=== PATIENT | male | born 2000 | race Asian ===

== ENCOUNTER 2021-05-08 19:27 | Emergency (ER) | payer OTHER ==
[~2021-05-08] VITALS: Ht 190.5 cm; Wt 136.2 kg
--- NOTE | 2021-05-08 19:56 | PHYS DOC ---
General Adult EDM: Chief Complaint: FOOT INJURY PAIN HPI: HPI: Patient is a 20-year-old male who presents to the ER for right foot and left great toe pain. Patient has had left great toe pain for 2 months. He reports having an ingrown toenail. He rates his pain 7 out of 10, it is worse with bearing weight and ambulation. No treatment prior to arrival. Patient reports that his right foot pain started 1 week ago after running. He reports pain plantar aspect of his foot. He rates it 5 out of 10, does not radiate, no treatment prior to arrival, worse with bearing weight and ambulating. Patient denies fevers, inability to bear weight or ambulate, decreased sensation decreased range of motion. (BOLIVAR MEJIA APRN) Review of Systems: Review of Systems: 14 body systems of the review of systems have been reviewed. See HPI for pertinent positive and negative responses, otherwise all other systems are negative, nonpertinent or noncontributory (BOLIVAR MEJIA APRN) Allergies: Allergies: Allergies Coded Allergies Type Severity Reaction Last Updated Verified No Known Drug Allergies 05/08/21 No (BOLIVAR MEJIA APRN) Physical Exam: PE: Constitutional: Well developed, well nourished, no acute distress, non-toxic appearance. [] HENT: Normocephalic, atraumatic Eyes: PERRL, conjunctiva normal, no discharge. [] Neck: Normal range of motion, no stridor Cardiovascular: Normal peripheral perfusion Lungs & Thorax: Normal work of breathing, no tachypnea Skin: Warm, dry, no rash, swelling, redness, warmth surrounding left great toenail, purulent drainage noted. [] Back: No tenderness, normal range of motion [] Extremities: No tenderness, no cyanosis, no clubbing, ROM intact, no edema. Right foot: No obvious deformity, no swelling, no wounds range of motion intact of ankle and toes, neuro intact, pain with palpation plantar aspect of foot sin g plantar fascia. [] Neurologic: Alert and oriented X 3, normal motor function, normal sensory function, no focal deficits noted. [] Psychologic: Affect normal, judgement normal, mood normal. [] (BOLIVAR MEJIA APRN) EKG: EKG: [] (BOLIVAR MEJIA APRN) Radiology/Procedures: Radiology/Procedures: X-ray read by Dr. Madden is negative for any acute findings. Awaiting radiologist read at this time.2155 (BOLIVAR MEJIA APRN) Heart Score: C/O Chest Pain: No Risk Factors: Risk Factors: DM, Current or recent (<one month) smoker, HTN, HLP, family history of CAD, obesity. Risk Scores: Score 0 - 3: 2.5% MACE over next 6 weeks - Discharge Home Score 4 - 6: 20.3% MACE over next 6 weeks - Admit for Clinical Observation Score 7 - 10: 72.7% MACE over next 6 weeks - Early Invasive Strategies (BOLIVAR MEJIA APRN) Course & Med Decision Making: Course & Med Decision Making Pertinent Labs and Imaging studies reviewed. (See chart for details) Patient is a 20-year-old male being seen for right foot and left great toe pain. An x-ray was performed of his right foot that was negative for any acute findings. Patient was tender with palpation along the plantar fascia of his right foot. It is likely that patient has inflammation of his plantar fascia. Patient advised to take ibuprofen/Tylenol for his pain. Patient has an ingrown toenail with infection to his left great toe. There was a collection of fluid along the left great toe. I discussed with patient draining the fluid without a digital block versus digital block and he chose to have the abscess drained without a digital block. The toe was cleansed with chlorhexidine and a small puncture was made. Serous sanguinous fluid was drained. Was cleansed with chlorhexidine again and a dressing was applied. Patient tolerated procedure. Patient neurologically intact pre and post procedure. Patient was treated in the ER with an antibiotic and pain medication. Patient's foot placed in a postop shoe. I discussed with patient all findings and diagnostic testing as well as the need to follow-up with PCP for further evaluation and treatment or return to the ER if any new or worsening symptoms. Strict return precautions were also discussed at length. Patient voiced understanding and agreement with the plan. Patient is hemodynamically stable at the time of disposition. (BOLIVAR MEJIA APRN) Course & Med Decision Making Did not see or evaluate patient. Agree with APPRAISAL SPECIALIST's work-up and disposition per note. (ROBI MADDEN MD) Dragon Disclaimer: Dragon Disclaimer: This electronic medical record was generated, in whole or in part, using a voice recognition dictation system. (BOLIVAR MEJIA APRN) Departure Departure: Impression: Primary Impression: Cellulitis Qualified Codes: L03.818 - Cellulitis of other sites Additional Impression: Plantar fascia syndrome Disposition: HOME / SELF CARE / HOMELESS Condition: GOOD Referrals: PCP,UNKNOWN (PCP) Patient Instructions: Cellulitis, Plantar Fasciitis Additional Instructions: You were seen in the ER today for right foot pain and left great toe pain. An x-ray was performed of your right foot and it was negative for fracture. It is likely that you have a musculoskeletal injury this will likely improve over time .You have pain in your foot where your plantar fascia tendon is. This is an overuse injury. Your symptoms may be improved by something called the rice protocol. This is rest, ice, compression, elevation. Please follow-up when doing intense exercises that may make the pain worse. Sometimes gentle stretching can provide relief, but be careful to injury. It is important to perform gentle range of motion exercises to prevent stiff joints and chronic pain. Use ice packs over the affected areas to help decrease your pain. For the first 24 hours you can apply ice 20 minutes on 20 minutes off for 4 times per day. Wear the postop shoe for support. You may also elevate the affected area to help with the swelling. You had an infection noted to the skin around your left great toe. The abscess was drained. Please keep this area clean and dry. You can apply Polysporin to the area and keep a dressing on the toe. An antibiotic was sent in for you to your pharmacy of choice. Please make sure that you start and finish the antibiotic completely. You were given your first dose in the ER today. You can take Tylenol/ibuprofen for pain at home. Monitor for worsening of your infection such as increased redness, warmth, swelling, drainage. Scripts Sulfamethoxazole/Trimethoprim (BACTRIM DS TABLET) 1 Each Tablet 1 TAB PO BID for toe infection for 10 Days, #20 TAB 0 Refills Prov: BOLIVAR MEJIA APRN 05/08/21 BOLIVAR MEJIA APRN May 08, 2021 19:56 ROBI MADDEN MD May 09, 2021 00:44
[2021-05-08] MEDS ORDERED: SMZ/TMP 800/160MG TABLET. PO ONE (20:00)
[2021-05-08] MEDS ORDERED: HYDROcodone/APAP 5/325MG 1 TAB TABLET PO ONE (20:00)
[2021-05-08] MEDS ORDERED: SULF1TAB24 PO (20:23)
[2021-05-08 22:00] VITALS: BP 130/72
--- NOTE | 2021-05-08 22:09 | RAD ---
Study: XR FOOT_RIGHT 3 VIEWS Indication: Foot pain for the past week. Comparison: None. Findings: The soft tissues appear somewhat prominent lateral to the fifth metatarsal. No fracture is identified or radiographic manifestations of stress injury. Alignment is within normal limits taking into consi deration the absence of weightbearing. Maintained joint spaces. Impression: No acute fracture or radiographic evidence for stress injury. The soft tissues appear mildly prominen t lateral to the fifth metatarsal. If there is concern for a stress fracture eventual MRI would be th e most sensitive modality. Electronically signed by: MELANIE LOYA MD (05/08/2021 10:07 PM) [facility]
== END 2021-05-08 22:14 | disposition home or self-care (01) ==
LOC: ER 19:27
DX: L03.032 Cellulitis of left toe (principal); M72.2 Plantar fascial fibromatosis
CPT/HCPCS: 10060; 73630; 99283

== ENCOUNTER 2022-01-29 09:26 | Emergency (ER) | payer OTHER ==
[~2022-01-29] VITALS: Ht 190.5 cm; Wt 147.2 kg
[~2022-01-29 09:26] MED LIST: SULF1TAB24 PO
[2022-01-29] MEDS ORDERED: HYDR-2155 PO (10:06)
[2022-01-29] MEDS ORDERED: CEPH500C PO (10:06)
[2022-01-29] MEDS ORDERED: SULF1TAB24 PO (10:08)
--- NOTE | 2022-01-29 10:08 | PHYS DOC ---
Past History Past Surgical History: No Surgical History Alcohol Use: None General Adult EDM: Chief Complaint: TOE PROBLEM HPI: HPI: Patient is a 21-year-old male who presents to the emergency department for an ingrown toenail to his right great toe. Patient reports that he believes ingrown toe is infected. He states that he has had the ingrown toenail for months. He states that he is supposed to do physical test for the tomorrow and would like us to give him a note so that he does not have to do that physical test tomorrow due to his toe. Patient denies any fevers, nausea, vomiting. Review of Systems: Review of Systems: Constitutional: See HPI GI: See HPI Musculoskeletal: See HPI Integument: See HPI Allergies: Allergies: Allergies Coded Allergies Type Severity Reaction Last Updated Verified No Known Drug Allergies 01/29/22 No Physical Exam: PE: Constitutional: Well developed, well nourished, no acute distress, non-toxic appearance. [] HENT: Normocephalic, atraumatic, bilateral external ears normal, oropharynx moist, no oral exudates, nose normal. [] Eyes: PERRL, EOMI, conjunctiva normal, no discharge. [] Neck: Normal range of motion, no stridor Cardiovascular: Normal peripheral perfusion Lungs & Thorax: Normal work of breathing Abdomen: Soft and obese Skin: Warm, dry, no erythema, no rash. [] Back: No tenderness, normal range of motion Extremities: No tenderness, no cyanosis, no clubbing, ROM intact, no edema. [] Right great toe: Redness, warmth and swelling noted surrounding nailbed with small amount of purulent drainage. There appears to be no area of fluctuance to drain. Range of motion intact. Neuro intact. Neurologic: Alert and oriented X 3, normal motor function, normal sensory function, no focal deficits noted. [] Psychologic: Affect normal, judgement normal, mood normal. [] Current Patient Data: Vital Signs: Vital Signs Date Time Temp Pulse Resp B/P (MAP) Pulse Ox O2 Delivery O2 Flow Rate FiO2 01/29/22 09:30 97.9 86 18 153/82 (105) 95 Room Air EKG: EKG: [] Radiology/Procedures: Radiology/Procedures: [] Heart Score: C/O Chest Pain: N/A Risk Factors: Risk Factors: DM, Current or recent (<one month) smoker, HTN, HLP, family history of CAD, obesity. Risk Scores: Score 0 - 3: 2.5% MACE over next 6 weeks - Discharge Home Score 4 - 6: 20.3% MACE over next 6 weeks - Admit for Clinical Observation Score 7 - 10: 72.7% MACE over next 6 weeks - Early Invasive Strategies Course & Med Decision Making: Course & Med Decision Making Pertinent Labs and Imaging studies reviewed. (See chart for details) [] Patient resents to the emergency department planing her entire note is made great toe. It appears that patient's right great toe has a skin infection. There is no fluctuant area to drain. Patient will be placed on an antibiotic. Patient states that he has an appointment with the director of clinical applications this week. Patient advised to follow-up with the director of clinical applications as soon as possible. I discussed with patient all findings and diagnostic testing as well as the need to follow-up with PCP for further evaluation and treatment or return to the ER if any new or worsening symptoms. Strict return precautions were also discussed at length. Patient voiced understanding and agreement with the plan. Patient is hemodynamically stable at the time of disposition. Dragon Disclaimer: Next Performance Disclaimer: This electronic medical record was generated, in whole or in part, using a voice recognition dictation system. Departure Departure: Impression: Primary Impression: Cellulitis Qualified Codes: L03.031 - Cellulitis of right toe Disposition: HOME / SELF CARE / HOMELESS Condition: GOOD Referrals: PCP,NO (PCP) Patient Instructions: Cellulitis Additional Instructions: You were seen in the emergency department today for an infected ingrown toenail. You are being placed on antibiotic. Please start and finish the antibiotic completely. You are being discharged home with pain medication. This medication is hydrocodone and Tylenol and a combination tablet. This medication may cause sedation so do not take need to be alert, driving a vehicle or with alcohol. You can take ibuprofen or naproxen for mild pain. Follow-up with your primary care provider on Sunday regarding your ER visit. Please follow-up with your director of clinical applications as previously scheduled. Return to the emergency department if you develop worsening of your infection, high fevers refractory to treatment, intractable nausea or vomiting, inability to bear weight or walk. Scripts Sulfamethoxazole/Trimethoprim (BACTRIM DS TABLET) 1 Each Tablet 1 TAB PO BID for infection for 7 Days, #14 TAB 0 Refills Prov: BOLIVAR MEJIA APRN 01/29/22 Hydrocodone Bit/Acetaminophen (HYDROCODONE-APAP 5-325 ) 1 Each Tablet 1 TAB PO PRN Q6HRS PRN for PAIN for 2 Days, #8 TAB 0 Refills Prov: BOLIVAR MEJIA APRN 01/29/22 BOLIVAR MEJIA APRN Jan 29, 2022 10:08
[2022-01-29 10:24] VITALS: BP 156/77
== END 2022-01-29 10:20 | disposition home or self-care (01) ==
LOC: ER 09:26
DX: L03.031 Cellulitis of right toe (principal)
CPT/HCPCS: 99283